=== PATIENT | male | born 1960 | race Caucasian/White ===

== ENCOUNTER → 2016-12-04 | Outpatient (CLI) | payer OTHER ==
[2016-12-04 13:06] LABS: BASO % 0.1 %; BASO ABS # 0.01 K/uL (0-0.2); COMPLETE YES; EOS % 2.1 %; IG% 0.1 %; LYMPH % 26.5 %; LYMPH ABS # 2.02 K/uL (1.2-3.4); MEAN CORPUSCULAR HEMOGLOBIN 31.8 pg (25-34); MEAN CORPUSCULAR HGB CONC 34.2 g/dl (32-36); MEAN PLATELET VOLUME 10.6 fL (7.4-10.4); NEUT % 62.2 %; PLATELET COUNT 206 K/uL (130-400); RED BLOOD COUNT 4.84 M/uL (4.7-6.1); WHITE BLOOD COUNT 7.63 K/uL (4.8-10.8)
[2016-12-04 13:31] LABS: RATIO 54.9 mcg/mg (0-30.0)
[2016-12-04 13:35] LABS: ESTIMATED AVERAGE GLUCOSE 171 mg/dl; HA1C FLAG Normal (Normal)
[2016-12-04 13:41] LABS: ALT/SGPT 29 U/L (12-78); BLOOD UREA NITROGEN 12 mg/dl (7-18); BUN/CREATININE RATIO 11.6 (10-20); CALCIUM 8.7 mg/dl (8.5-10.1); CARBON DIOXIDE 27 mmol/L (21-32); CHLORIDE 105 mmol/L (98-107); CHOLESTEROL 198 mg/dl (0-200); GLUCOSE 135 mg/dl (70-99); POTASSIUM 4.8 mmol/L (3.5-5.1); SODIUM 141 mmol/L (136-145); TRIGLYCERIDES 110 mg/dl (0-150); VERY LOW DENSITY LIPOPROT CALC 22 mg/dl
[2016-12-04 13:45] LABS: ALB/GLOB RATIO 1.1 (0.9-2); ALKALINE PHOSPHATASE 80 U/L (45-117); AST/SGOT 27 U/L (15-37); CHOLESTEROL/HDL RATIO 3.5; HDL CHOLESTEROL 57 mg/dl; LDL CHOLESTEROL CALCULATED 119 mg/dl
== END | disposition home or self-care (01) ==
LOC: C.LABPVFM 08:17
PROVIDERS: ATTEND Nurse Practitioner Family
DX: E78.5 Hyperlipidemia, unspecified (principal); I10 Essential (primary) hypertension; E11.9 Type 2 diabetes mellitus without complications; R97.20 Elevated prostate specific antigen [PSA]

== ENCOUNTER → 2017-05-30 | Outpatient (CLI) | payer OTHER ==
[2017-05-30 11:12] LABS: BASO % 0.3 %; BASO ABS # 0.03 K/uL (0-0.2); COMPLETE YES; HEMATOCRIT 45.6 % (42-52); IG% 0.1 %; LYMPH % 19.1 %; MEAN CELL VOLUME 93.4 fL (80-100); MEAN CORPUSCULAR HEMOGLOBIN 31.1 pg (25-34); MEAN CORPUSCULAR HGB CONC 33.3 g/dl (32-36); MEAN PLATELET VOLUME 10.5 fL (7.4-10.4); MONO % 8.8 %; NEUT % 70.7 %; PLATELET COUNT 211 K/uL (130-400); RED BLOOD COUNT 4.88 M/uL (4.7-6.1)
[2017-05-30 11:32] LABS: ESTIMATED AVERAGE GLUCOSE 157 mg/dl; HA1C FLAG Normal (Normal)
[2017-05-30 14:03] LABS: RATIO 46.2 mcg/mg (0-30.0)
[2017-05-30 14:03] LABS: ALT/SGPT 29 U/L (12-78); BLOOD UREA NITROGEN 13 mg/dl (7-18); BUN/CREATININE RATIO 11.5 (10-20); CALCIUM 9.3 mg/dl (8.5-10.1); CARBON DIOXIDE 27 mmol/L (21-32); CHLORIDE 104 mmol/L (98-107); CHOLESTEROL 194 mg/dl (0-200); GLUCOSE 128 mg/dl (70-99); MAGNESIUM 1.8 mg/dl (1.8-2.4); POTASSIUM 4.1 mmol/L (3.5-5.1); SODIUM 140 mmol/L (136-145); TRIGLYCERIDES 117 mg/dl (0-150); VERY LOW DENSITY LIPOPROT CALC 23 mg/dl
[2017-05-30 14:11] LABS: ALB/GLOB RATIO 1.1 (0.9-2); ALKALINE PHOSPHATASE 80 U/L (45-117); AST/SGOT 22 U/L (15-37); CHOLESTEROL/HDL RATIO 3.1; HDL CHOLESTEROL 62 mg/dl; LDL CHOLESTEROL CALCULATED 109 mg/dl
== END | disposition home or self-care (01) ==
LOC: C.LABBC 09:07
PROVIDERS: ATTEND Nurse Practitioner Family
DX: E78.5 Hyperlipidemia, unspecified (principal); I10 Essential (primary) hypertension; E11.9 Type 2 diabetes mellitus without complications; R97.20 Elevated prostate specific antigen [PSA]

== ENCOUNTER → 2017-10-15 | Outpatient (CLI) | payer OTHER | END | disposition home or self-care (01) | LOC: C.LABPVFM 11:14 | PROVIDERS: ATTEND Urology | DX: N40.1 Benign prostatic hyperplasia with lower urinary tract symptoms (principal) ==

== ENCOUNTER → 2017-11-10 | Outpatient (CLI) | payer OTHER | END | disposition home or self-care (01) | LOC: C.PATHSPEC 10:49 | PROVIDERS: ATTEND Urology | DX: R97.20 Elevated prostate specific antigen [PSA] (principal) ==

== ENCOUNTER → 2017-11-23 | Outpatient (CLI) | payer OTHER | END | disposition home or self-care (01) | LOC: C.LABPVFM 11:02 | PROVIDERS: ATTEND Nurse Practitioner Family | DX: E78.5 Hyperlipidemia, unspecified (principal); I10 Essential (primary) hypertension; E11.9 Type 2 diabetes mellitus without complications; R97.20 Elevated prostate specific antigen [PSA] ==

== ENCOUNTER 2020-08-06 05:07 | Inpatient (IN) ==
--- NOTE | 2020-07-02 14:15 | PAT Medication Instructions ---
Medication Instructions Date of Service July 02, 2020 Home Medications amlodipine 5 mg PO QAM cholecalciferol (vitamin D3) [Vitamin D3] 25 mcg PO QAM hydrochlorothiazide 25 mg PO QAM losartan 100 mg PO QAM metformin 750 mg PO HS simvastatin 20 mg PO HS DO NOT take the morning of surgery cholecalciferol (vitamin D3) [Vitamin D3] 25 mcg PO QAM hydrochlorothiazide 25 mg PO QAM losartan 100 mg PO QAM Take morning of surgery With a small sip of water, OTHERWISE NOTHING TO EAT OR DRINK AFTER MIDNIGHT: amlodipine 5 mg PO QAM Take evening before surgery metformin 750 mg PO HS simvastatin 20 mg PO HS Other Notes If you have any questions please call us at [phone] or [phone] or [phone] or [phone]
--- NOTE | 2020-07-04 11:43 | Anesthesiology Consultation ---
Date of Service July 04, 2020 Assessment & Plan (1) Encounter for pre-operative examination: - Per assessment on 07/04: Travel screen negative. No known COVID-19 positive contacts or current COVID-19 related symptoms. Surgeon arranging preop COVID t esting. Awaiting results. - [facility] ER visit: 07/02/20: evaluation of dysuria/urinary frequency, hypokalemia. Noted to be in ELIF (creatinine 1.67), + hypokalemia (2.6) and found to have UTI. Patient given IV fluids/IV abx. D/C on abx/potassium replacement. Patient subsequently seen at PAT 07/04/20 and states that urinary symptoms have since resolved. Repeat potassium 07/04 mildly improved at 2.8 and kidney function normalized. Awaiting response from PCP if rechecking potassium level and/or adjusting potassium supplementation dosing prior to surgery (DEVANTE Quinonez). Chart Review Chart Review: Patient seen in Pre Admission Testing Teaching & Discussion Pre-Anesthesia Teaching/Discussion Notes: Instructed NPO after midnight before surgery,except medications with 15 cc of water. Medication instructions provided according to the [facility] guidelines. History Surgery Operation Date: 08/06/20 10:10 Proposed Procedures p Right Total Knee Arthroplasty - Sanket Rivers DO Height/Weight Height: 5 ft 8 in Weight: 94.8 kg Allergies Allergy/AdvReac Type Severity Reaction Status Date / Time No Known Drug Allergies Allergy Verified 07/02/20 10:17 Medications Home Medications Medication Instructions Recorded Confirmed Last Taken amlodipine 5 mg PO QAM 07/02/20 07/02/20 Unknown cefdinir 300 mg PO BID 10 Days #20 cap 07/02/20 Unknown cholecalciferol (vitamin D3) 25 mcg PO QAM 07/02/20 07/02/20 Unknown [Vitamin D3] hydrochlorothiazide 25 mg PO QAM 07/02/20 07/02/20 Unknown losartan 100 mg PO QAM 07/02/20 07/02/20 Unknown metformin 750 mg PO HS 07/02/20 07/02/20 Unknown potassium chloride 10 meq PO DAILY #30 tab 07/02/20 Unknown simvastatin 20 mg PO HS 07/02/20 07/02/20 Unknown Past Medical History Medical History Benign prostatic hyperplasia with urinary obstruction and other lower urinary tract symptoms Diabetes mellitus type 2, controlled, without complications Hyperlipidemia Hypertension Osteoarthritis Exercise / Class Metabolic Activity II 4-5 Yardwork/Stairs/Walk up hill Past Family History Family History Mother Breast cancer Sister Breast cancer Father Prostate cancer, Onset Age: 55 Denies family history of Ovarian cancer Myocardial infarction Colorectal cancer Past Surgical History Surgical History No history of previous surgery Past Anesthesia History No Hx of Anesthesia Complications and No Family Hx of Anesthesia Complications History of PONV No Hx of PONV and No Hx of Motion Sickness Social History Smoking Status: Never smoker Do You Dip or Chew Tobacco: No Hx Alcohol Use: Yes alcohol intake frequency: holidays/special occasions only Hx Substance Use: No Review of Systems Patient denies chest pain, shortness of breath, dyspnea on exertion, fever, chills, cough, wheezing, palpitations. Physical Exam Vital Signs VITALS BP 137/75 P 88 TEMP 98.7 SP02 95%RA RESP 16 PHYSICAL Full neck and c-spine range of motion. Full TMJ range of motion. TMD 3 finger breaths Mallampati Score 2 Dentition: several missing teeth including lower front teeth, Poor dentition Lungs: clear throughout to auscultation Cardiac: regular rate and rhythm, no murmurs noted Spine: normal Carotid arteries: negative bruit Extremities: no edema Testing Laboratory Results 07/04/20 12:04 Hemoglobin A1c 8.0 % (4.5-5.6) H 07/04/20 12:04 Blood Type O Positive 07/04/20 12:04 Antibody Screen NEGATIVE 07/04/20 12:04 Surgeon's office made aware of elevated hgba1c* 07/02/20 WBC 9.20 H/H 13.4/37.6 PLATELETS 168 PT 10.3 PTT 25.9 INR 1.0 UA +leuk est, negative bacteria, + epithelials (no growth on urine culture) Electrocardiogram Date: 07/04/20 Findings: + NSR @ (85) Chest X-Ray Date: 07/04/20 FINDINGS: The heart is mildly enlarged. There is no failure. There is no focal pulmonary consolidation. There are no pleural effusions. There are degenerative changes present within the dorsal spine. There is bridging osteophytosis. IMPRESSION: No active disease in the chest.
--- NOTE | 2020-07-04 12:57 | XRay Report ---
XR chest Pre-admission PA/Lat CLINICAL HISTORY: Preoperative chest COMPARISON STUDY: No previous studies for comparison. FINDINGS: The heart is mildly enlarged. There is no failure. There is no focal pulmonary consolidatio n. There are no pleural effusions. There are degenerative changes present within the dorsal spine. Th ere is bridging osteophytosis.[ IMPRESSION: No active disease in the chest. ACT 112: Negative or not required by law. Electronically signed by: Pancho Collier M.D. 07/04/2020 12:55 PM
[2020-07-04 13:34] LABS: Estimated Average Glucose 183 mg/dl
--- NOTE | 2020-07-04 13:52 | Electrocardiogram Report ---
Test Reason : Blood Pressure : / mmHG Vent. Rate : 085 BPM Atrial Rate : 085 BPM P-R Int : 144 ms QRS Dur : 090 ms QT Int : 408 ms P-R-T Axes : 070 050 029 degrees QTc Int : 485 ms Normal sinus rhythm Normal ECG When compared with ECG of 02-JUL-2020 16:48, No significant change was found Confirmed by Javier Andrade ([id number]) on 07/04/2020 1:51:47 PM Referred By: Sanket Rivers Confirmed By:Javier Andrade
[2020-07-04 14:53] LABS: Albumin Level 2.9 gm/dl (3.4-5.0); BUN Creatinine Ratio 16.9 (10-20); Calcium 9.5 mg/dl (8.5-10.1); Potassium 2.8 mmol/L (3.5-5.1)
--- NOTE | 2020-07-08 15:02 | History & Physical Report ---
Date of Service July 08, 2020 date of surgery: 08-06-20 procedure: right total knee replacement Assessment & Plan (1) Arthritis of right knee: Risks and benefits of procedure discussed in detail today, patient would like to proceed with a Right total knee replacement at [facility] as scheduled. will obtain medical clearance prior to surgery as well as obtain PATs at [facility]. Will place on ASA 81mg po bid x 1 month post op, f/u 2 weeks post op for routine post-operative care and x-ray, sooner if having any problems. will make arrangements for HHPT at the time of discharge. At this point in time, has failed conservative measures and would like to proceed with surgical intervention. The risks and benefits have been discussed including, but not limited to, risk of infection, nerve injury, stiffness, loss of motion, failure to improve, etc. Reasonable outcomes and options of treatment were discussed. An explanation of appropriate alternatives to the procedure that may be advantageous were discussed and their risks and benefits, as well as the risks and benefits of not proceeding with treatment. I offered to answer any additional inquiries concerning the treatment involved. All the patient's questions were answered. The patient is agreeable, understanding of the treatment plan and alternatives, and wishes to proceed with the treatment plan. History of Present Illness Chief Complaint: Right knee pain Primary Care Provider: NO PCP Mr Garcia is a 59 year old male who is here for a follow up of right knee pain, presents for preop prior to a right total knee replacement at [facility]. He presents with pain and stiffness on the right side. He states that the symptoms have been chronic non-traumatic. Currently the patient states that the symptoms are moderate-severe. The pain is described as aching and throbbing. The symptoms occur intermittently. The symptoms are aggravated by first steps while awake, e xercise, daily activities, ascending stairs, descending stairs, driving, kneeling, jumping, movement, repetitive activities, sleeping on the affected side, squatting, standing, walking and weight bearing. In addition to right knee pain the patient is also experiencing decreased mobility, difficulty bending, difficulty going to sleep, instability, limping, nighttime awakening, pain, stiffness, tenderness and weakness. The patient has had a previous x-ray. He has been treated with a corticosteroid injection on the right side. Patient has been treated with previous visco supplementation, Supartz injections. Patient reports no relief w/ injections. Allergies Allergy/AdvReac Type Severity Reaction Status Date / Time No Known Drug Allergies Allergy Verified 07/02/20 10:17 Home Medications Home Medications Medication Instructions Recorded Confirmed Type amlodipine 5 mg PO QAM 07/02/20 07/02/20 History cefdinir 300 mg PO BID 10 Days #20 cap 07/02/20 Rx cholecalciferol (vitamin D3) 25 mcg PO QAM 07/02/20 07/02/20 History [Vitamin D3] hydrochlorothiazide 25 mg PO QAM 07/02/20 07/02/20 History losartan 100 mg PO QAM 07/02/20 07/02/20 History metformin 750 mg PO HS 07/02/20 07/02/20 History potassium chloride 10 meq PO DAILY #30 tab 07/02/20 Rx simvastatin 20 mg PO HS 07/02/20 07/02/20 History Past Med/Surg History Medical History Benign prostatic hyperplasia with urinary obstruction and other lower urinary tract symptoms Diabetes mellitus type 2, controlled, without complications Hyperlipidemia Hypertension Osteoarthritis Surgical History No history of previous surgery Family History Mother Breast cancer Sister Breast cancer Father Prostate cancer, Onset Age: 55 Denies family history of Ovarian cancer Myocardial infarction Colorectal cancer Social History Smoking Status: Never smoker Second Hand Exposure: No; Do You Dip or Chew Tobacco: No; Tobacco Cessation Education Requested by Patient: No Hx Alcohol Use: Yes Hx Substance Use: No Preferred Language: Czech Communication Ability: Effective Visual Impairment: No Limitations Hearing Ability: Normal Helper Animal Laboratory Required: No Beliefs That Will Affect Care: None marital status: Current Living Situation: Spouse current occupational status: employed current occupation: self employeed Other Information That Helps Us Care for You: No Feels Safe at Home: Yes Safety Concerns: Feels Safe At This Time Childhood Exposure to Second-Hand Smoke: Yes Dental Care, Regularly: No Physical Activity Frequency: Does not Exercise Seatbelt Use: sometimes Sunscreen Use: No Review of Systems Review of Systems: All systems reviewed & are unremarkable except as noted in HPI & below Constitutional: no fever, no chills and no sweats Respiratory: no cough and no dyspnea Cardiovascular: no chest pain, no dyspnea and no orthopnea Gastrointestinal: no abdominal pain, no nausea and no vomiting Musculoskeletal: as per Subjective / HPI Physical Exam Physical Exam: HT: 5ft 8in Wt: 204 BP: 122/66 Constitutional: WD/WN, vitals as above no acute distress Respiratory: normal respiratory effort, lungs clear to auscultation no respiratory distress, no labored breathing and does not use accessory muscles Cardiovascular: RRR, no murmur, no edema Gastrointestinal (Abdomen): normal bowel sounds, soft, nontender, no hepatosplenomegaly Musculoskeletal: Knee: + knee abnormal to inspection (Right knee- ), + effusion (+1 effusion), + limited ROM of knee (ROM 0/3/110), + knee ROM with crepitation, + joint line tenderness (medial joint line) and + Caitlyn's sign positive; no deformity, no skin erythema, no ecchymosis, no valgus laxity, no varus laxity, anterior drawer test negative, Jami's sign negative and pivot shift test negative Results & Data Results & Data ([facility]) Laboratory Results Laboratory Results Sodium 137 mmol/L (136-145) 07/04/20 12:04 Potassium 2.8 mmol/L (3.5-5.1) L 07/04/20 12:04 Chloride 98 mmol/L (98-107) 07/04/20 12:04 Carbon Dioxide 29 mmol/L (21-32) 07/04/20 12:04 Anion Gap 10.0 (3-11) 07/04/20 12:04 BUN 19 mg/dl (7-18) H 07/04/20 12:04 Creatinine 1.14 mg/dl (0.6-1.4) D 07/04/20 12:04 Est Cr Clr Drug Dosing 76.0 ml/min 07/04/20 12:04 Est GFR ( Amer) 80.0 07/04/20 12:04 Est GFR (Non-Af Amer) 69.0 07/04/20 12:04 BUN/Creatinine Ratio 16.9 (10-20) 07/04/20 12:04 Glucose 169 mg/dl (70-99) H 07/04/20 12:04 Estimat Average Glucose 183 mg/dl 07/04/20 12:04 Hemoglobin A1c 8.0 % (4.5-5.6) H 07/04/20 12:04 Calcium 9.5 mg/dl (8.5-10.1) 07/04/20 12:04 Albumin 2.9 gm/dl (3.4-5.0) L 07/04/20 12:04 Blood Type O Positive 07/04/20 12:04 Antibody Screen NEGATIVE 07/04/20 12:04 Diagnostic Findings Right Knee X-ray: Right knee series showing advanced degenerative changes to the right knee, narrowing of the medial compartment and patello-femoral joint with patellar spurring noted, findings showing joint space narrowing of the medial compartment and patello-femoral joint, osteophyte formation and subchondral sclerosis noted. overall varus alignment. no acute bony pathology noted.
[2020-08-06] MEDS ORDERED: GABAPENTIN 600 MG DOSE PO SCH (06:00)
[2020-08-06] MEDS ORDERED: TRANEXAMIC ACID 1,000 MG **IV Intra-op IV SCH (06:00)
[2020-08-06] MEDS ORDERED: ROPIVACAINE 0.5% HCL/PF 150 MG, BUPIVACAINE 0.5% MPF 30 ML, EPINEPHrine 30MG/30ML (OR U... INSTIL SCH (06:00)
[2020-08-06] MEDS ORDERED: ACETAMINOPHEN 500 MG TAB PO SCH (06:00)
[2020-08-06] MEDS ORDERED: LR 500ML BOLUS, THEN 15ML/HR IV SCH (06:00)
[2020-08-06] MEDS ORDERED: OXYCODONE HCL 10 MG TABCR (OXYCONTIN) PO SCH (06:00)
[2020-08-06] MEDS ORDERED: METOCLOPRAMIDE HCL 10 MG TABLET PO SCH (06:00)
[2020-08-06] MEDS ORDERED: TRANEXAMIC ACID 1,000 MG **IV Pre-op IV SCH (06:00)
[2020-08-06] MEDS ORDERED: CeleBREX 200 MG CAP PO SCH (06:00)
[2020-08-06] MEDS ORDERED: FAMOTIDINE 20 MG TAB PO SCH (06:00)
[2020-08-06] MEDS ORDERED: CEFAZOLIN 2000MG 2,000 MG/15 ML SYR IV SCH (06:00)
[2020-08-06] MEDS ORDERED: BUPIVACAINE 0.5 % 5 MG/1 ML PF 10ML VIAL ONE (06:19)
[2020-08-06] MEDS ORDERED: MIDAZOLAM HCL 1 MG/ML 2ML VIAL ONE (06:21)
[2020-08-06] MEDS ORDERED: ORTHO JOINT ANESTHETIC ONE (06:35)
[2020-08-06] MEDS ORDERED: BACITRACIN INJ 50,000 UNIT VIAL ONE (06:35)
[2020-08-06] MEDS ORDERED: ePHEDrine sulfate 50 MG/ML AMP IV PRN (06:38)
[2020-08-06] MEDS ORDERED: ATROPINE SULFATE 0.1 MG/ML 10ML SYR IV PRN (06:38)
[2020-08-06] MEDS ORDERED: fentaNYL citrate 100 MCG/2 ML VIAL IV PRN (06:38)
[2020-08-06] MEDS ORDERED: ONDANSETRON INJ 2 MG/ML 2 ML VIAL IV PRN ×2 (06:38→09:08)
--- NOTE | 2020-08-06 07:07 | History & Physical Bridge Note ---
Date of Service August 06, 2020 History & Physical Bridge Note I have examined the patient, reviewed the History & Physical and in the interval since the performance of the History & Physical I have noted the following changes of clinical significance: no changes noted
[2020-08-06] MEDS ORDERED: PROPOFOL IV EMULSION 10 MG/ML 20 ML VIAL IV ONE (07:34)
[2020-08-06] MEDS ORDERED: GLYCOPYRROLATE 0.2 MG/ML VIAL ONE (07:34)
[2020-08-06] MEDS ORDERED: DEXAMETHASONE SOD INJ 4 MG/ML VIAL ONE (07:34)
[2020-08-06] MEDS ORDERED: ePHEDrine sulfate 50 MG/ML AMP ONE (07:34)
[2020-08-06] MEDS ORDERED: LIDOCAINE HCL 2% 2 ML VIAL/AMP(20MG/ML) INFIL ONE (07:34)
[2020-08-06] MEDS ORDERED: PHENYLEPHRINE HCL 10 MG/ML VIAL ONE (07:34)
[2020-08-06] MEDS ORDERED: ONDANSETRON INJ 2 MG/ML 2 ML VIAL ONE (07:34)
--- NOTE | 2020-08-06 08:21 | Operative Report ---
Post Operative Report Pre & Post Diagnosis Operation Date: 08/06/20 07:00 Pre-Op Diagnosis: Osteoarthritis, Right Knee Post-Op Diagnosis: Osteoarthritis, Right Knee I identified the patient and participated in the time-out.: Yes Procedure Operation Date: 08/06/20 07:00 Actual Procedures p Right Total Knee Arthroplasty(Right) utilizing [facility] journey 2 patient matched total knee arthroplasty size 4 femur 5 tibia 10 polyethylene 32 oval patella- Sanket Rivers DO Surgeon Sanket Rivers DO Shot Peen Operator COMPA Parra Estimated Blood Loss 5 Findings Consistent with Post-Op Diagnosis Patient presents with severe end-stage DJD varus alignment subchondral sclerosis marginal osteophytes subchondral cystic changes eburnated bone with a moderate to large effusion Specimens Bone and cartilage Drains Medium bore Hemovac Anesthesia Type MAC Spinal Regional Complications none Disposition Accompanied Patient To Recovery: No Disposition: Recovery Room Indications Patient presents with severe end-stage DJD right knee no response to conservative management clinic physical therapy anti-inflammatories relative rest activity modification corticosteroid injection Visco supplementation above intraoperative findings no time surgery. Description of Procedure After proper prepping and draping of the Right lower extremity anterior midline incision was made over the region of the extensor extensor mechanism after meticulous hemostasis was obtained and maintained in subcutaneous tissues a medial parapatellar incision was made The patella was subluxed lateralward the medial lateral gutter were cleaned from any hypertrophic synovitis and scar tissue of the distal femoral block was placed and the distal femoral osteotomy cut was made subsequently the chamfers anterior and posterior osteotomy cuts were made utilizing the 4-in-1 block the tibia was subsequently subluxed anterio rward medial and ateral meniscal remnants were excised in their entirety remnants of the anterior and posterior cruciate ligaments were excised in their entirety excellent exposure of the proximal tibia was obtained the tibial osteotomy guide was placed on the proximal tibial osteotomy cut was made once again the knee was irrigated with copious amounts of sterile saline solution the patella was subsequently everted lateralward thickened scar tissue around the patella was removed the patella was subsequently cut utilizing a freehand technique and was drilled prepared for final preparation and placement of patella socially flexion-extension gaps were checked and the equal and symmetric trials were placed to the appropriate femoral and tibial trials with poly-spacer being placed for equal flexion and extension gaps and full range of motion including extension to 0 and flexion to 140 the trial components after having been taken to recovery range of motion was subsequently removed meticulous hemostasis was obtained and maintained subsequently a knee block injection of joint cocktail including ropivacaine 0.5% 150 mg. Bupivacaine 0.5% epinephrine 1-200,030 mL's toradol 30 mg dexamethasone 4 mg ketamine 10 mg clonidine 100 micrograms normal saline solution 30 mg was infiltrated into the soft tissues of the posterior knee medial lateral gutters and periosteal synovium special attent ion was paid to protect neurovascular structures at all times subsequently trial components having been removed the knee was irrigated with sterile saline solution. debris was removed the proximal tibia was subsequently prepared and was made ready for the placement of the tibial component tibial component was also cemented and tamped into position the femoral component was subsequently placed and cemented in the position the patellar component was subsequently cemented in position because hemostasis once again obtained and maintained wound having been thoroughly irrigated with debridement and debridement lavage was performed as well as a medial parapatellar incision closed with #1 Vicryl in interrupted fashion subcutaneous was closed with #2 Vicryl skin was closed with skin clips. PA-C was necessary for prepping and drapping as well as wound closure of deep fascia Sub cutaneous tissue and skin and was necessary for the case. A sterile compressive dressing was placed patient was taken to recovery in stable condition of report dictated by Silvestre I attest to the content of the Intraoperative Record and any orders documented therein. Any exceptions are noted below. I attest to the content of the Intraoperative Record and any orders documented therein. Any exceptions are noted below.
[2020-08-06] MEDS ORDERED: HYDROmorphone INJ 1 MG/ML SYRINGE IV PRN (09:08)
[2020-08-06] MEDS ORDERED: bisacodyL 10 MG SUPP PR PRN (09:08)
[2020-08-06] MEDS ORDERED: MAGNESIUM HYDROXIDE SUSP 30 ML UDC PO PRN (09:08)
[2020-08-06] MEDS ORDERED: NALOXONE HCL 0.4 MG/1 ML VIAL/CARP IV PRN (09:08)
[2020-08-06] MEDS ORDERED: METOCLOPRAMIDE HCL INJ 5 MG/ML 2 ML VIAL IV PRN (09:08)
[2020-08-06] MEDS ORDERED: OXYCODONE HCL IR 5 MG TAB (IMMEDIATE RELEASE) PO PRN (09:08)
[2020-08-06] MEDS ORDERED: PHARMACY GLYCEMIC MGMT CONSULT PRN (09:15)
--- NOTE | 2020-08-06 09:21 | XRay Report ---
RIGHT KNEE 2 VIEWS History: Right total knee arthroplasty. Degenerative arthritis. Postop. FINDINGS: The patient is status post a right total knee arthroplasty. The hardware is intact. No frac ture or dislocation. Surgical drains are in place. IMPRESSION: Right total knee arthroplasty. No evidence for hardware complication. ACT 112: Negative or not required by law. Electronically signed by: Ang Solis M.D. 08/06/2020 9:20 AM
--- NOTE | 2020-08-06 09:48 | Anesthesiology Progress Note ---
Date of Service August 06, 2020 Anesthesia Post Procedure Vital Signs Vital Signs: Temp Pulse Pulse Resp BP BP Pulse Ox 08/06/20 09:40 88 16 106/65 93 08/06/20 09:30 89 15 114/67 94 08/06/20 09:20 98 H 12 108/64 93 08/06/20 09:10 93 H 16 100/60 94 08/06/20 09:01 99.5 F 97 H 18 95/57 L 96 08/06/20 06:20 94 H 20 138/70 97 08/06/20 05:39 98.2 F 97 H 20 143/85 H 97 Transfer of Care Handoff Completed per policy Notes Mental Status: alert / awake / arousable and participated in evaluation Patient Amnestic to Procedure: Yes Nausea / Vomiting: adequately controlled Pain: adequately controlled Airway Patency, RR, SpO2: stable & adequate BP & HR: stable & adequate Hydration State: stable & adequate Neuraxial Anesthesia: was administered and sensory block is resolving Anesthetic Complications: no major complications apparent and Pt Satisfied with anesthetic care
[2020-08-06] MEDS ORDERED: DEXTROSE 50% 50 ML SYRINGE IV PRN (10:15)
[2020-08-06] MEDS ORDERED: GLUCOSE 10 TABS/TUBE PO PRN (10:15)
[2020-08-06] MEDS ORDERED: CARBOHYDRATES FOR HYPOGLYCEMIA PO PRN (10:15)
[2020-08-06] MEDS ORDERED: GLUCAGON FOR INJ 1 MG VIAL IM PRN (10:15)
[2020-08-06] MEDS ORDERED: GLUCOSE 40% GEL 15 GM TUBE PO PRN (10:15)
[2020-08-06] MEDS ORDERED: INSULIN HUMAN NPH SC ONE (10:30)
[2020-08-06] MEDS: SODIUM CHLORIDE 0.9% 1000ML 1,000 ML IV SCH ×2 (11:11→19:12)
[2020-08-06] MEDS: INSULIN ASPART 100 UNITS/ML 3 ML PEN SC SCH ×2 (11:16→12:48)
[2020-08-06] MEDS: KETOROLAC TROMETHAMINE 15 MG/ML VIAL IV SCH ×3 (12:48→23:10)
--- NOTE | 2020-08-06 13:51 | Pharmacy Report ---
Pharmacy Glycemic Sign Off Nt - Date of Service August 06, 2020 - Assessment & Plan ASSESSMENT: * Pharmacy was consulted by Reynold Guzman PA-C on 08/06/2020 for glycemic control and to write orders per [facility] inpatient glycemic control protocol. * Major changes made by pharmacy to antidiabetic regimen include: * initiation of NPH and Novolog * Patient REFUSED NPH and Novolog despite extensive education by nursing. * Discussed with Reynold Guzman. Will resume oral medications tomorrow and d/c insulin. Pharmacy to sign off. PLAN FOR INPATIENT GLYCEMIC CONTROL: No changes needed to current regimen. * metformin 1000 mg HS * Glipizide 5 mg daily * Pharmacy is signing off of glycemic consult and will no longer be making adjustments to inpatient regimen. Please feel free to re-consult if needed. Thank you. DISCHARGE RECOMMENDATIONS: * A1c 8.0 % on 07/04/20
[2020-08-06] MEDS: ACETAMINOPHEN 500 MG TAB PO SCH ×2 (14:33→21:46)
[2020-08-06] MEDS: CEFAZOLIN 2000MG 2,000 MG/15 ML SYR IV SCH ×2 (14:34→23:14)
[2020-08-06] MEDS ORDERED: SENNA 8.6 MG TAB PO SCH (21:00)
[2020-08-06] MEDS ORDERED: SIMVASTATIN 20 MG TAB PO SCH (21:00)
[2020-08-06] MEDS: DOCUSATE SODIUM 100 MG CAP PO SCH (21:45)
[2020-08-06] MEDS: ASPIRIN 81 MG ECTAB PO SCH (21:47)
[2020-08-07] MEDS ORDERED: INSULIN ASPART 100 UNITS/ML 3 ML PEN SC SCH
[2020-08-07] MEDS: KETOROLAC TROMETHAMINE 15 MG/ML VIAL IV SCH (04:40)
[2020-08-07] MEDS: ACETAMINOPHEN 500 MG TAB PO SCH (05:35)
[2020-08-07 05:36] LABS: Hematocrit (blood only) 32.4 % (42-52); Hemoglobin 10.8 g/dL (14.0-18.0); Mean Corpuscular Hemoglobin 31.1 pg (25-34); Mean Corpuscular Hgb Conc 33.3 g/dL (32-36); Mean Corpuscular Volume 93.4 fL (80-100); Mean Platelet Volume 9.3 fL (7.4-10.4); Platelet Count 236 K/uL (130-400); RDW Coefficient of Variation 13.4 % (11.5-14.5); RDW Standard Deviation 45.3 fL (36.4-46.3); Red Blood Count 3.47 M/uL (4.7-6.1); White Blood Count 12.85 K/uL (4.8-10.8)
[2020-08-07 06:01] LABS: BUN Creatinine Ratio 16.4 (10-20); Calcium 8.5 mg/dl (8.5-10.1); Creatinine Clr Calc Pharmacy 62.2 ml/min; Est GFR (African American) 62.5; Est GFR (Non-African American) 53.9; Potassium 4.1 mmol/L (3.5-5.1)
[2020-08-07] MEDS ORDERED: glipiZIDE 5 MG TAB PO SCH (07:30)
--- NOTE | 2020-08-07 08:10 | Anesthesiology Progress Note ---
Date of Service August 07, 2020 Anesthesia Post Procedure Vital Signs Vital Signs: Temp Pulse Pulse Resp BP Pulse Ox 08/07/20 03:24 36.5 C 91 H 18 134/85 93 08/07/20 00:05 36.5 C 98 H 20 121/75 94 08/06/20 19:22 36.7 C 102 H 18 124/73 93 08/06/20 15:09 36.8 C 102 H 16 120/66 93 08/06/20 13:00 107 H 16 115/71 92 08/06/20 11:00 36.7 C 107 H 16 130/70 92 08/06/20 10:41 98 H 16 148/74 H 93 08/06/20 10:15 36.8 C 95 H 18 114/68 93 08/06/20 10:00 93 H 18 110/65 95 08/06/20 09:50 36.6 C 96 H 15 112/67 94 08/06/20 09:40 88 16 106/65 93 08/06/20 09:30 89 15 114/67 94 08/06/20 09:20 98 H 12 108/64 93 08/06/20 09:10 93 H 16 100/60 94 08/06/20 09:01 37.5 C 97 H 18 95/57 L 96 Notes Mental Status: alert / awake / arousable and participated in evaluation Patient Amnestic to Procedure: Yes Nausea / Vomiting: adequately controlled Pain: adequately controlled Airway Patency, RR, SpO2: stable & adequate BP & HR: stable & adequate Hydration State: stable & adequate Neuraxial Anesthesia: was administered and sensory block resolved Anesthetic Complications: no major complications apparent and Pt Satisfied with anesthetic care
[2020-08-07] MEDS: DOCUSATE SODIUM 100 MG CAP PO SCH (08:29)
[2020-08-07] MEDS: ASPIRIN 81 MG ECTAB PO SCH (08:29)
--- NOTE | 2020-08-07 08:41 | Orthopedic Progress Note ---
Date of Service August 07, 2020 Assessment & Plan (1) Arthritis of right knee: Postop day 1 status post right total knee arthroplasty PT/OT protocols. Weightbearing as tolerated. DVT prophylaxis with aspirin p.o. twice daily, ALEKSEY Dumont. Pain management as written. Discharge planning-patient planning on home health services for PT. Admission and Anticipated Discharge Date Admission Date: August 06, 2020 Subjective Patient sitting up in his bed eating breakfast. No complaints this morning. Pain is controlled. He is in good spirits. Denies shortness of breath, chest pain, lightheadedness. Physical Exam Physical Exam: Dressings are clean, dry, and intact. Calves are soft nontender. Neurovascular is intact. Toes are mobile. Hemovac drainage was 75 mL's from the previous shift. Results & Data ([facility]) Vital Signs (Past 12 Hours) Vital Signs Temp Pulse Resp BP Pulse Ox 08/07/20 08:13 36.7 C 71 16 122/70 95 08/07/20 03:24 36.5 C 91 H 18 134/85 93 08/07/20 00:05 36.5 C 98 H 20 121/75 94 Laboratory Results Laboratory Results WBC 12.85 K/uL (4.8-10.8) H 08/07/20 05:07 RBC 3.47 M/uL (4.7-6.1) L 08/07/20 05:07 Hgb 10.8 g/dL (14.0-18.0) L 08/07/20 05:07 Hct 32.4 % (42-52) L 08/07/20 05:07 MCV 93.4 fL (80-100) 08/07/20 05:07 MCH 31.1 pg (25-34) 08/07/20 05:07 MCHC 33.3 g/dL (32-36) 08/07/20 05:07 RDW Std Deviation 45.3 fL (36.4-46.3) 08/07/20 05:07 RDW Coeff of Ariel 13.4 % (11.5-14.5) 08/07/20 05:07 Plt Count 236 K/uL (130-400) 08/07/20 05:07 MPV 9.3 fL (7.4-10.4) 08/07/20 05:07 Sodium 140 mmol/L (136-145) 08/07/20 05:07 Potassium 4.1 mmol/L (3.5-5.1) 08/07/20 05:07 Chloride 108 mmol/L (98-107) H 08/07/20 05:07 Carbon Dioxide 26 mmol/L (21-32) 08/07/20 05:07 Anion Gap 6.0 (3-11) 08/07/20 05:07 BUN 23 mg/dl (7-18) H 08/07/20 05:07 Creatinine 1.39 mg/dl (0.6-1.4) 08/07/20 05:07 Est Cr Clr Drug Dosing 62.2 ml/min 08/07/20 05:07 Est GFR ( Amer) 62.5 08/07/20 05:07 Est GFR (Non-Af Amer) 53.9 08/07/20 05:07 BUN/Creatinine Ratio 16.4 (-20) 08/07/20 05:07 Glucose 159 mg/dl (70-99) H 08/07/20 05:07 POC Glucose 176 mg/dl (70-99) H 08/07/20 08:02 Estimat Average Glucose 183 mg/dl 07/04/20 12:04 Hemoglobin A1c 8.0 % (4.5-5.6) H 07/04/20 12:04 Calcium 8.5 mg/dl (8.5-10.1) 08/07/20 05:07 Albumin 2.9 gm/dl (3.4-5.0) L 07/04/20 12:04 Blood Type O Positive 07/04/20 12:04 Antibody Screen NEGATIVE 07/04/20 12:04
[2020-08-07] MEDS ORDERED: CHOLECALCIFEROL 1,000 UNITS 25 MCG TAB PO SCH (09:00)
[2020-08-07] MEDS ORDERED: AMLODIPINE BESYLATE 5 MG TAB PO SCH (09:00)
[2020-08-07] MEDS ORDERED: MULTIVITAMIN TAB PO SCH (09:00)
[2020-08-07] MEDS ORDERED: LOSARTAN POTASSIUM 50 MG TAB PO SCH (09:00)
--- NOTE | 2020-08-07 12:55 | Discharge Summary ---
Date of Service date of discharge: August 07, 2020 date of admission: Admission HPI Per Admitting Provider Mr Garcia is a 59 year old male who is here for a follow up of right knee pain, presents for preop prior to a right total knee replacement at [facility]. He presents with pain and stiffness on the right side. He states that the symptoms have been chronic non-traumatic. Currently the patient states that the symptoms are moderate-severe. The pain is described as aching and throbbing. The symptoms occur intermittently. The symptoms are aggravated by first steps while awake, exercise, daily activities, ascending stairs, descending stairs, driving, kneeling, jumping, movement, repetitive activities, sleeping on the affected side, squatting, standing, walking and weight bearing. In addition to right knee pain the patient is also experiencing decreased mobility, difficulty bending, difficulty going to sleep, instability, limping, nighttime awakening, pain, stiffness, tenderness and weakness. The patient has had a previous x-ray. He has been treated with a corticosteroid injection on the right side. Patient has been treated with previous visco supplementation, Supartz injections. Patient reports no relief w/ injections. Principal Diagnosis right knee arthritis Discharge Exam Constitutional WD/WN, vitals as above no acute distress Musculoskeletal right knee: NVDI, calf SNT, negative lucy sign. DP palpable, able to wiggle toes/ankle movement without difficulty. Dressing clean dry and intact. expected post-operative bruising noted. Vital Signs Temp 36.7 C 08/07/20 10:32 Pulse 71 08/07/20 10:32 Resp 16 08/07/20 10:32 BP 122/70 08/07/20 10:32 Pulse Ox 95 08/07/20 10:32 Intake & Output 08/06/20 08/07/20 08/07/20 18:59 06:59 18:59 Intake Total 3250 / 5451.667 2201.667 / 5451.667 Output Total 1055 / 1430 375 / 1430 Balance 2195 / 4021.667 1826.667 / 4021.667 Weight 96.933 kg Intake: IV 900 / 2701.667 1801.667 / 2701.667 Lr 1,000 ml @ 15 mls/hr IV . 700 / 700 Q24H WARREN Rx#:[id number] Nss 1000ML 1,000 ml @ 100 mls/ 1801.667 / 1801.667 hr IV .Q10H WARREN Rx#:[id number] TRANEXAMIC ACID / 0.7% NACL 1, 200 / 200 000 mg In 100 ml @ 600 mls/hr IV TODAY@0600 WARREN Rx#:[id number] IV Perioperative 1200 / 1200 Oral 1150 / 1550 400 / 1550 Output: Urine 1025 / 1275 250 / 1275 Estimated Blood Loss 5 / 5 Drain Output 25 / 150 125 / 150 Right Knee Hemovac 25 / 150 125 / 150 Other: Other Intake Source Dinner # Unmeasured Voids 1 Laboratory Results WBC 12.85 K/uL (4.8-10.8) H 08/07/20 05:07 RBC 3.47 M/uL (4.7-6.1) L 08/07/20 05:07 Hgb 10.8 g/dL (14.0-18.0) L 08/07/20 05:07 Hct 32.4 % (42-52) L 08/07/20 05:07 MCV 93.4 fL (80-100) 08/07/20 05:07 MCH 31.1 pg (25-34) 08/07/20 05:07 MCHC 33.3 g/dL (32-36) 08/07/20 05:07 RDW Std Deviation 45.3 fL (36.4-46.3) 08/07/20 05:07 RDW Coeff of Ariel 13.4 % (11.5-14.5) 08/07/20 05:07 Plt Count 236 K/uL (130-400) 08/07/20 05:07 MPV 9.3 fL (7.4-10.4) 08/07/20 05:07 Sodium 140 mmol/L (136-145) 08/07/20 05:07 Potassium 4.1 mmol/L (3.5-5.1) 08/07/20 05:07 Chloride 108 mmol/L (98-107) H 08/07/20 05:07 Carbon Dioxide 26 mmol/L (21-32) 08/07/20 05:07 Anion Gap 6.0 (3-11) 08/07/20 05:07 BUN 23 mg/dl (7-18) H 08/07/20 05:07 Creatinine 1.39 mg/dl (0.6-1.4) 08/07/20 05:07 Est Cr Clr Drug Dosing 62.2 ml/min 08/07/20 05:07 Est GFR ( Amer) 62.5 08/07/20 05:07 Est GFR (Non-Af Amer) 53.9 08/07/20 05:07 BUN/Creatinine Ratio 16.4 (-20) 08/07/20 05:07 Glucose 159 mg/dl (70-99) H 08/07/20 05:07 POC Glucose 176 mg/dl (70-99) H 08/07/20 08:02 Estimat Average Glucose 183 mg/dl 07/04/20 12:04 Hemoglobin A1c 8.0 % (4.5-5.6) H 07/04/20 12:04 Calcium 8.5 mg/dl (8.5-10.1) 08/07/20 05:07 Albumin 2.9 gm/dl (3.4-5.0) L 07/04/20 12:04 Blood Type O Positive 07/04/20 12:04 Antibody Screen NEGATIVE 07/04/20 12:04 Discharge Data Allergies Allergy/AdvReac Type Severity Reaction Status Date / Time No Known Drug Allergies Allergy Verified 08/06/20 05:28 Consultations 08/06/20 09:08 Consult Case Management - Discharge Planning Routine Procedures Performed Operation Date: 08/06/20 07:00 Actual Procedures p Right Total Knee Arthroplasty(Right) - Sanket Rivers DO Ordered Studies 08/06/20 08:12 US - OR guided needle placemen Routine Hospital Course (1) Arthritis of right knee: Postop day 1 status post right total knee arthroplasty PT/OT protocols. Weightbearing as tolerated. DVT prophylaxis with aspirin p.o. twice daily, SCDs, ALEKSEY mast. Pain management as written. Discharge planning-patient planning on home health services for PT. Total Time Total Time Spent Total Time Spent (In Minutes): 20 Total Time Includes: Examination of the Patient, Discharge Planning and Medication Reconciliation Discharge Plan Discharge Items Patient Disposition: Home - Home Health Services Reason For Visit: Osteoarthritis, Right Knee Discharge Diagnosis: Right total knee replacement Activity: Per Instructions section Lifting: Wait until after follow-up appointment Weightbearing Comment: WBAT with walker Non-emergency contact: Surgeon Call non-emergency contact if: you have any medication questions, your pain is not controlled, your temperature is above 101, your wound has increased redness, your wound has increased drainage and your wound pain has increased Follow-up/Referrals: PCP,NO [Primary Care Provider] - Diet: Carb Consistent or DM2 Addtl Attending Provider Instructions: ACTIVITY RECOMMENDATIONS: SELF CARE INSTRUCTIONS AFTER TOTAL KNEE REPLACEMENT A. You may need to continue a physical therapy program after discharge from the hospital. There are several options available to you. Your doctor will assist you in selecting the best one for you. 1. An out-patient facility 2 to 3 times a week for therapy or home therapy. 2. Continue working on all exercises taught to you in the hospital. Your goals should be to increase bending of your knee to 90 degrees and beyond and to fully straighten your knee. B. You may progress at your own pace from walking with a walker or crutches to a cane; then to no assistive devices. C. Make walking a part of your daily routine. Be up as much as comfortable with rest periods throughout the day. Rest with leg elevation is very important. Use the ice wrap frequently for the first 3-4 weeks. D. There are no restrictions on activities. You may ride in a car, shop, participate in closet builder and all social activities. E. Wear the long elastic stockings (ALEKSEY hose) 20 hours a day for 2 weeks after surgery. They can be removed several times a day for laundering and for a bath. F. You may shower, no tub baths until cleared by your doctor. SPECIAL CARE INSTRUCTIONS: VERY IMPORTANT TO READ AND REVIEW A. There are a few signs you need to watch for after you are home. Call [facility] [place] if you notice any of the followin. Increased severe knee pain. Some pain is expected especially when you exercise. 2. Increased swelling in your leg or knee; pain or swelling of the calf muscle in either lower leg. 3. Any fluid drainage from the incision. 4. Shortness of breath or chest pain. B. Please call [facility] at if you have any concerns or questions about your operation or recovery. The doctor or his nurse will return your call promptly. C. You must take antibiotics before dental work, bladder, bowel or other surgery. Your doctor will provide you with a permanent care to carry describing this precaution. IMPORTANT: * REMEMBER TO TAKE ASPIRIN, 81 MG, TWICE DAILY FOR 4 WEEKS UNLESS OTHERWISE DIRECTED. THIS IS YOUR BLOOD THINNER. * HIGH RISK PATIENTS MAY BE PRESCRIBED A STRONGER BLOOD THINNER. THIS WILL BE PROVIDED AT DISCHARGE. * CALL IF INCREASED PAIN, REDNESS, DRAINAGE OR FEVER GREATER THAT 101. * WEAR ALEKSEY HOSE 20 HOURS PER DAY FOR 2 WEEKS. * DERMABOND Prineo- This is a mesh tape dressing that is covered with glue. It should remain in place until the incision is properly healed, usually 10-14 days. This dressing is designed to naturally slough off. You may trim the excess mesh tape as it peels off. Incision may be briefly wet in a shower. Dry immediately by blotting with a clean, dry towel. Do not bath or swim until instructed by your doctor. Do not scratch, rub, or pick at the dressing. Do not apply any topical ointments or lotions until dressing is completely removed and/or instructed by your doctor. There may be a small piece of suture material at one end of your incision. Do not pull or trim this. If it is bothersome or catching on clothing, you may cover it with a band-aid. IF INCISION IS LEAKING THROUGH DRESSING, CALL THE OFFICE . FOLLOW UP VISIT: If appointment is not already scheduled: Please call [facility] [place] to make a follow-up appointment for 2 weeks after your surgery at . Stand-Alone Forms: My [employer], Smoking Cessation Medications and DC Order Prescriptions: New aspirin 81 mg Tablet,Delayed Release (Dr/Ec) 81 mg PO BID 30 Days Qty: 60 RF: 0 acetaminophen 500 mg Tablet 1,000 mg PO Q8 14 Days Qty: 84 RF: 0 polyethylene glycol 3350 [Miralax] 17 gram powder in packet 17 g PO DAILY PRN (Reason: constipation) Qty: 5 RF: 0 oxycodone 5 mg Tablet 5 mg PO Q4H MDD 6 PRN (Reason: pain) Qty: 30 RF: 0 Continued simvastatin 20 mg Tablet 20 mg PO HS RF: 0 cholecalciferol (vitamin D3) [Vitamin D3] 25 mcg (1,000 unit) Tablet 25 mcg PO QAM RF: 0 amlodipine 5 mg tablet 10 mg PO QAM RF: 0 hydrochlorothiazide 25 mg tablet 25 mg PO QAM RF: 0 losartan [Cozaar] 100 mg tablet 100 mg PO QAM RF: 0 metformin 750 mg tablet extended release 24 hr 1,000 mg PO HS RF: 0 glipizide 5 mg Tablet 5 mg PO DAILY RF: 0 sulfamethoxazole-trimethoprim [Bactrim DS] 800-160 mg Tablet 1 tab PO BID RF: 0 Discharge Orders: Discharge Order (Routine); Ordered 08/07/20 Ordered By: Yohan Espinoza/Other Patient Handouts: Managing Type 2 Diabetes, Managing Diabetes: The A1C Test Admission Data Admit Date/Time: 08/06/20 12:58 Attending Provider: Sanket Rivers Admit Provider: Sanket Rivers Primary Care Provider: PCP,NO Other Providers: [facility],Home Healthcare Other Interventions: Discharge Summary Assessment (RN) Last Done: 08/07/20 10:32
[2020-08-07] MEDS ORDERED: CeleBREX 200 MG CAP PO SCH (21:00)
[2020-08-07] MEDS ORDERED: METFORMIN HCL 500 MG TAB PO SCH (21:00)
== END 2020-08-07 12:09 | disposition home health service (06) | DRG 470 ==
LOC: 3E 05:07 → ASU 05:07